=== PATIENT | female | born 1990 | race Caucasian/White ===

== ENCOUNTER 2018-09-22 11:07 | Inpatient (IN) | payer MEDICAID ==
[~2018-09-22] VITALS: Ht 149.9 cm; Wt 68.5 kg
--- NOTE | 2018-09-22 11:07 | NUR ---
BROUGHT IN BY [facility], PLACED IN BED #1 AND QUICK OB TRIAGE DONE, OB NURSE SABAS AT BEDSIDE. SENT TO OB VIA WHEELCHAIR
[2018-09-22] MEDS ORDERED: LR 1,000 ML IV SCH (11:34)
[2018-09-22] MEDS ORDERED: MORPHINE 4 MG/ML INJ. SYRINGE IVP PRN (11:45)
[2018-09-22] MEDS: MORPHINE SULFATE 10 MG/ML VIAL IVP PRN ×2 (11:58→14:01)
[2018-09-22] MEDS ORDERED: cefTRIAXone 1 GM IVPB PREMIX 50 ML IV ONE (12:15)
[2018-09-22 12:53] LABS: BASOPHILS % (AUTO) 0.3 % (0.0-2.0); EOSINOPHILS # (AUTO) 0.1 K/uL (0.0-0.4); EOSINOPHILS % (AUTO) 0.8 % (0.0-4.0); HEMATOCRIT 33.4 % (36-48); HEMOGLOBIN 11.3 g/dL (12.0-16.0); LYMPHOCYTES # (AUTO) 1.8 K/uL (1.0-5.5); LYMPHOCYTES % (AUTO) 23.6 % (20.5-51.5); MEAN CORPUSCULAR HEMOGLOBIN 31 pg (27-31); MEAN CORPUSCULAR HGB CONC 34 % (32-36); MEAN CORPUSCULAR VOLUME 90 fL (79.0-98.0); MONOCYTES # (AUTO) 0.6 K/uL (0.0-1.0); MONOCYTES % (AUTO) 7.4 % (1.7-9.3); NEUTROPHILS % (AUTO) 67.9 % (40.0-70.0); PLATELET COUNT (AUTO) 211 K/uL (130-430); WHITE BLOOD COUNT (AUTO) 7.5 K/uL (4.8-10.8)
[2018-09-22 12:55] LABS: BILIRUBIN,URINE NEGATIVE (NEGATIVE); BLOOD, URINE 3+ (NEGATIVE); CLARITY/URINE SL HAZY (CLEAR); COLOR,URINE YELLOW (YELLOW); GLUCOSE,URINE NEGATIVE (NEGATIVE); KETONES,URINE 3+ (NEGATIVE); LEUKOCYTE ESTERASE ,URINE NEGATIVE (NEGATIVE); NITRITE, URINE NEGATIVE (NEGATIVE); PH,URINE 6.5 (5.0-8.0); PROTEIN URINE NEGATIVE (NEGATIVE); UROBILINOGEN,URINE 0.2 (0.2-1.0)
[2018-09-22 12:59] LABS: BACTERIA,URINE FEW /HPF (None Seen); MUCUS,URINE None Seen /LPF (None Seen); RBC,URINE >100 /HPF (0-3); WBC,URINE 0-3 /HPF (0-3)
[2018-09-22 12:59] LABS: CALCIUM 8.6 mg/dL (8.4-11.0); CREATININE 0.5 mg/dL (0.55-1.30); POTASSIUM 3.5 mmol/L (3.5-5.1)
[2018-09-22 13:04] LABS: ALBUMIN 3.2 g/dL (3.4-4.8); TOTAL BILIRUBIN 0.4 mg/dL (0.0-1.0)
[2018-09-22 19:37] VITALS: BP_SYST 129
== END 2018-09-23 10:00 | disposition home or self-care (01) | DRG 566 ==
LOC: SED 11:07 → OBSVTOIN 11:15 → SPU 11:15
PROVIDERS: ADMIT Obstetrics & Gynecology; ATTEND Obstetrics & Gynecology
DX: O26.832 Pregnancy related renal disease, second trimester (principal); N20.0 Calculus of kidney; Z3A.22 22 weeks gestation of pregnancy
CPT/HCPCS: 36415; 76770; 80053; 81000-TC; 85025; 99283; J0696; J2270; J7120

== ENCOUNTER 2019-11-27 16:41 | Emergency (ER) | payer MEDICAID ==
[~2019-11-27] VITALS: Ht 149.9 cm; Wt 68.0 kg
[2019-11-27 16:47] VITALS: BP_SYST 183
[2019-11-27] MEDS ORDERED: NACL 0.9% 2,000 ML IV ONE (17:00)
[2019-11-27] MEDS ORDERED: KETOROLAC TROMETHAMINE 30 MG VIAL IVP ONE (17:00)
[2019-11-27 17:23] LABS: HEMOGLOBIN 13.9 g/dL (12.0-16.0); MONOCYTES # (AUTO) 0.7 K/uL (0.0-1.0); WHITE BLOOD COUNT (AUTO) 7.6 K/uL (4.8-10.8)
[2019-11-27 17:26] LABS: CALCIUM 8.6 mg/dL (8.4-11.0); CREATININE 0.72 mg/dL (0.55-1.30); POTASSIUM 3.4 mmol/L (3.5-5.1)
[2019-11-27 17:27] LABS: BILIRUBIN,URINE NEGATIVE (NEGATIVE); BLOOD, URINE 2+ (NEGATIVE); CLARITY/URINE CLEAR (CLEAR); COLOR,URINE YELLOW (YELLOW); GLUCOSE,URINE NEGATIVE (NEGATIVE); KETONES,URINE NEGATIVE (NEGATIVE); LEUKOCYTE ESTERASE ,URINE TRACE (NEGATIVE); NITRITE, URINE NEGATIVE (NEGATIVE); PROTEIN URINE NEGATIVE (NEGATIVE); UROBILINOGEN,URINE 0.2 (0.2-1.0)
[2019-11-27 17:28] LABS: BASOPHILS % (AUTO) 0.6 % (0.0-2.0); EOSINOPHILS # (AUTO) 0.2 K/uL (0.0-0.4); HEMATOCRIT 41.5 % (36-48); LYMPHOCYTES # (AUTO) 3.3 K/uL (1.0-5.5); MEAN CORPUSCULAR HEMOGLOBIN 31 pg (27-31); MEAN CORPUSCULAR HGB CONC 34 % (32-36); MEAN CORPUSCULAR VOLUME 91 fL (79.0-98.0); MONOCYTES % (AUTO) 9.5 % (1.7-9.3); NEUTROPHILS # (AUTO) 3.3 K/uL (1.8-7.7); NEUTROPHILS % (AUTO) 43.9 % (40.0-70.0); PLATELET COUNT (AUTO) 256 K/uL (130-430); RED BLOOD CELL COUNT(AUTO) 4.55 MIL/uL (4.2-6.2); RED CELL DISTRIBUTION WIDTH 13.4 % (9.0-15.0)
[2019-11-27 17:32] LABS: ALBUMIN 4.3 g/dL (3.4-4.8); TOTAL BILIRUBIN 0.3 mg/dL (0.0-1.0)
[2019-11-27 17:43] LABS: PROTHROMBIN TIME 9.8 SECS (9.5-12.5)
[2019-11-27] MEDS ORDERED: ONDANSETRON HCL 4 MG/2 ML VIAL IVP ONE (17:45)
[2019-11-27] MEDS ORDERED: MORPHINE 4 MG/ML INJ. SYRINGE IVP ONE (17:45)
[2019-11-27 18:12] LABS: BACTERIA,URINE MODERATE /HPF (None Seen)
[2019-11-27 18:24] VITALS: BP_SYST 134
== END 2019-11-27 18:24 | disposition home or self-care (01) ==
LOC: SED 16:41
DX: N20.0 Calculus of kidney (principal); R74.0 Nonspecific elevation of levels of transaminase and lactic acid dehydrogenase [LDH]; K76.0 Fatty (change of) liver, not elsewhere classified
CPT/HCPCS: 36415; 74176; 80053; 81000; 81025; 83605; 83690; 85025; 85610; 85730; 87040; 87086; 96374; 96375; 99284; J1885; J2270; J2405; J7030